=== PATIENT | female | born 1970 | race Caucasian/White ===

== ENCOUNTER 2017-10-31 07:43 | Emergency (ER) | payer SELFPAY ==
[~2017-10-31] VITALS: Ht 160 cm; Wt 70.0 kg
[~2017-10-31 07:43] MED LIST: ASAC800T PO; DIFL150T PO
[2017-10-31 07:45] VITALS: BP 134/77; PULSE 119; RESP 14; TEMP 97.6; O2SAT 100
[2017-10-31 07:57] VITALS: PULSE 111
[2017-10-31] MEDS ORDERED: MEDI220T PO (08:00)
[2017-10-31] MEDS ORDERED: IBUP200T47 PO (08:00)
[2017-10-31] MEDS ORDERED: SOMA250T PO (08:00)
[2017-10-31] MEDS ORDERED: GABA100C4 PO (08:00)
--- NOTE | 2017-10-31 08:00 | PD ---
HPI Chief Complaint: Back/ Neck Pain or Injury Time Seen by Provider: 07:59 Travel History International Travel<30 days: No Contact w/Intl Traveler<30days: No Traveled to known affect area: No History of Present Illness HPI 47-year-old female presents emergency department with ongoing and worsening right sided neck stiffness and spasm. Patient states it has been going on for over a week. She denies any specific injury. Patient has seen her neurologist, who has treated her with prednisone, Flexeril, and Soma without improvement. Patient states he has been using heat and ice without improvement. Patient states that massage seems to make it worse. She denies weakness or numbness in the upper extremities. Patient denies fever, chills, or other symptoms. She has allergies to hydromorphone. PFSH Past Medical History Blood Disorders: No Cancer: Yes (SKIN CANCER REMOVED FROM RIGHT SHOULDER) Cardiovascular Problems: No Diabetes: No Diminished Hearing: No Gastrointestinal Disorders: Yes (CHRONIC COLITIS AND ESOPHAGITIS) GERD: Yes Genitourinary: No Immune Disorder: No Implanted Vascular Access Dvce: No Musculoskeletal: No Neurologic: Yes (meningioma, chronic headaches) Psychiatric: No Respiratory: No Thyroid Disease: No Tetanus Vaccination: < 5 Years Influenza Vaccination: No ?: Not : 5 Para: 3 Miscarriage: 1 : 1 Past Surgical History Cardiac Surgery: No Cholecystectomy: Yes Ear Surgery: No Endocrine Surgery: No Genitourinary Surgery: No Gynecologic Surgery: Yes Hysterectomy: Yes Neurologic Surgery: No Oral Surgery: No Thoracic Surgery: No Other Surgery: Yes (ganglion cyst from rt wrist,sq cell CA rt shld) Social History Alcohol Use: Yes (SOCIALLY) Tobacco Use: Yes Substance Use: No Allergies-Medications (Allergen,Severity, Reaction): Coded Allergies: hydromorphone (Verified Allergy, Mild, MAKES STOMACH BURN , 10/31/17) Reported Meds & Prescriptions Reported Meds & Active Scripts Active Diflucan (Fluconazole) 150 Mg Tab 150 Mg PO ONCE Reported Adderall (Amphetamine-Dextroamphetamine) 10 Mg Tab 10 Mg PO DAILY Avoid late evening doses. Space doses at least 4 to 6 hours if more than once/day dosing. Ibuprofen 200 Mg Tab 200 Mg PO Q6H PRN Naproxen Sodium 220 Mg Tab 220 Mg PO BID PRN Gabapentin 100 Mg Cap 100 Mg PO TID Soma (Carisoprodol) 250 Mg Tab 250 Mg PO QID PRN Asacol HD (Mesalamine) 800 Mg Tab 1,600 Mg PO TID Swallow whole. Take on an empty stomach. Review of Systems Except as stated in HPI: all other systems reviewed are Neg General / Constitutional: No: Fever Eyes: No: Visual changes HENT: No: Headaches Cardiovascular: No: Chest Pain or Discomfort Respiratory: No: Shortness of Breath Gastrointestinal: No: Abdominal Pain Genitourinary: No: Dysuria Musculoskeletal: Positive: Myalgias, Limited ROM, Pain (See history of present illness) Skin: No Rash Neurologic: No: Weakness Psychiatric: No: Depression Endocrine: No: Polydipsia Hematologic/Lymphatic: No: Easy Bruising Physical Exam Narrative GENERAL: Patient appears in moderate distress SKIN: Warm and dry. Normal color. Normal turgor. No rash. HEAD: Atraumatic. Normocephalic. EYES: Pupils equal and round. No scleral icterus. No injection or drainage. ENT: No nasal bleeding or discharge. Mucous membranes pink and moist. Pharynx is clear. Airways patent. NECK: Trachea midline. No bony tenderness or step-off. Range of motion is limited secondary to soft tissue tenderness and spasm on the right paraspinous and scalene muscles. Spasm is CARDIOVASCULAR: Regular rate and rhythm. RESPIRATORY: No accessory muscle use. Clear to auscultation. Breath sounds equal bilaterally. GASTROINTESTINAL: Abdomen soft, non-tender, nondistended. Hepatic and splenic margins not palpable. MUSCULOSKELETAL: Extremities without clubbing, cyanosis, or edema. No obvious deformities. NEUROLOGICAL: Awake and alert. No obvious cranial nerve deficits. Motor grossly within normal limits. Five out of 5 muscle strength in the arms and legs. Normal speech. PSYCHIATRIC: Appropriate mood and affect; insight and judgment normal. Data Data Last Documented VS Vital Signs Date Time Temp Pulse Resp B/P (MAP) Pulse Ox O2 Delivery O2 Flow Rate FiO2 10/31/17 07:57 17 10/31/17 07:57 111 10/31/17 07:45 97.6 100 Orders Orders Ketorolac Inj (Toradol Inj) (10/31/17 08:15) Orphenadrine Inj (Norflex Inj) (10/31/17 08:15) [facility] Medical Decision Making Medical Screen Exam Complete: Yes Emergency Medical Condition: Yes Medical Record Reviewed: Yes Differential Diagnosis Neck pain. Torticollis. Muscle spasm. Narrative Course Radiographic imaging at this time is not felt warranted based on the patient's history and physical. Patient is given Toradol 60 mg IM as well as 60 mg Norflex IM. Patient is given 40 mg prednisone p.o. Patient will be continued on prednisone 20 mg twice daily 5 days. Patient continued on Norflex 100 mg twice daily. #10. Recommend patient follow-up with her neurologist for further evaluation and treatment and recommend physical therapy. I also recommend the patient evaluate her workstation as this may be contributing factor to her condition. Diagnosis Primary Impression: Torticollis, spasmodic Referrals: Neurologist Patient Instructions: General Instructions, Muscle Spasm (ED), Spasmodic Torticollis (ED) Additional Instructions: Patient is given Toradol 60 mg IM as well as 60 mg Norflex IM. Patient is given 40 mg prednisone p.o. Patient will be continued on prednisone 20 mg twice daily 5 days. Patient continued on Norflex 100 mg twice daily. #10. Recommend patient follow-up with her neurologist for further evaluation and treatment and recommend physical therapy. I also recommend the patient evaluate her workstation as this may be contributing factor to her condition. Med/Other Pt SpecificInfo: Prescription(s) given Disposition: 01 DISCHARGE HOME Condition: Stable Todd Lovelace Oct 31, 2017 08:00
[2017-10-31] MEDS ORDERED: ADDE10 PO (08:01)
[2017-10-31] MEDS ORDERED: KETOROLAC TROMETHAMINE 60 MG/2 ML (IM) VIAL IM ONE (08:15)
[2017-10-31] MEDS ORDERED: predniSONE 20 MG TAB PO ONE (08:15)
[2017-10-31] MEDS ORDERED: ORPHENADRINE INJ 60 MG/2 ML AMP IM ONE (08:15)
[2017-10-31] MEDS ORDERED: ORPH100T2 PO (08:21)
[2017-10-31] MEDS ORDERED: PRED20 PO (08:21)
== END 2017-10-31 08:46 | disposition home or self-care (01) ==
LOC: NEPD 07:43
DX: G24.3 Spasmodic torticollis (principal); Z85.828 Personal history of other malignant neoplasm of skin; Z72.0 Tobacco use; Z88.5 Allergy status to narcotic agent; Z79.899 Other long term (current) drug therapy
CPT/HCPCS: 96372; 99283; J1885; J2360; J7512

== ENCOUNTER 2018-01-30 12:48 | Emergency (ER) | payer MEDICAID ==
[~2018-01-30] VITALS: Ht 157.5 cm; Wt 72.5 kg
[~2018-01-30 12:48] MED LIST changes: +ADDE10 PO; +GABA100C4 PO; +IBUP200T47 PO; +MEDI220T PO; +ORPH100T2 PO; +PRED20 PO; +SOMA250T PO
[2018-01-30 13:05] VITALS: BP 162/90; PULSE 125; RESP 22; TEMP 98.7; O2SAT 100
[2018-01-30 14:05] VITALS: PULSE 108; RESP 24; O2SAT 98
[2018-01-30] MEDS ORDERED: KETOROLAC TROMETHAMINE 60 MG/2 ML (IM) VIAL IM ONE (14:30)
[2018-01-30] MEDS ORDERED: ORPHENADRINE INJ 60 MG/2 ML AMP IM ONE (14:30)
--- NOTE | 2018-01-30 14:46 | PD ---
HPI Chief Complaint: Injury Time Seen by Provider: 14:16 Travel History International Travel<30 days: No Contact w/Intl Traveler<30days: No Traveled to known affect area: No History of Present Illness HPI 47-year-old female presents to the emergency department with complaint of right arm pain with numbness and tingling 1 week. Denies injury. Says she thinks her pain starts in the neck and radiates down her right arm. Denies fever, vomiting. Denies history of DVT/PE. Denies anticoagulant therapy. Denies arm edema. Rates pain 10/10. Describes it as throbbing. Worse with movement, especially with rotation of her neck. No known relieving factors. Has tried NSAIDs, Z-Matthew, heat, Medrol Dosepak without relief of symptoms. Called and spoke with her neurologist who told her to come to the ER. She sees a neurologist for a tumor in her brain that he follows. No primary care provider. Neurologist is Dr. Wynn. No known allergies. History of ADD and takes Adderall. Denies other significant past medical history. Has no other medical complaints. No other modifying factors or associated signs and symptoms. PFSH Past Medical History Blood Disorders: No Cancer: Yes (SKIN CANCER REMOVED FROM RIGHT SHOULDER) Cardiovascular Problems: No Diabetes: No Diminished Hearing: No Gastrointestinal Disorders: Yes (CHRONIC COLITIS AND ESOPHAGITIS) GERD: Yes Genitourinary: No Immune Disorder: No Implanted Vascular Access Dvce: No Musculoskeletal: No Neurologic: Yes (meningioma, chronic headaches) Psychiatric: No Respiratory: No Thyroid Disease: No : 5 Para: 3 Miscarriage: 1 : 1 Past Surgical History Cardiac Surgery: No Cholecystectomy: Yes Ear Surgery: No Endocrine Surgery: No Genitourinary Surgery: No Gynecologic Surgery: Yes Hysterectomy: Yes Neurologic Surgery: No Oral Surgery: No Thoracic Surgery: No Other Surgery: Yes (ganglion cyst from rt wrist,sq cell CA rt shld) Social History Alcohol Use: Yes (SOCIALLY) Tobacco Use: Yes Substance Use: No Allergies-Medications (Allergen,Severity, Reaction): Coded Allergies: hydromorphone (Verified Allergy, Mild, MAKES STOMACH BURN , 01/30/18) Reported Meds & Prescriptions Reported Meds & Active Scripts Active Orphenadrine CR (Orphenadrine Citrate) 100 Mg Tab 100 Mg PO Q12HR 5 Days Prednisone 20 Mg Tab 20 Mg PO BID 5 Days Diflucan (Fluconazole) 150 Mg Tab 150 Mg PO ONCE Reported Adderall (Amphetamine-Dextroamphetamine) 10 Mg Tab 10 Mg PO DAILY Avoid late evening doses. Space doses at least 4 to 6 hours if more than once/day dosing. Ibuprofen 200 Mg Tab 200 Mg PO Q6H PRN Naproxen Sodium 220 Mg Tab 220 Mg PO BID PRN Gabapentin 100 Mg Cap 100 Mg PO TID Soma (Carisoprodol) 250 Mg Tab 250 Mg PO QID PRN Asacol HD (Mesalamine) 800 Mg Tab 1,600 Mg PO TID Swallow whole. Take on an empty stomach. Review of Systems Except as stated in HPI: all other systems reviewed are Neg Physical Exam Narrative GENERAL: Well-nourished, well-developed patient, in no acute distress SKIN: Warm and dry. HEAD: Atraumatic. Normocephalic. EYES: Pupils equal and round. No scleral icterus. No injection or drainage. ENT: Mucosa pink and moist. Airway patent. NECK: Supple. Trachea midline. Moving freely. No midline tenderness on palpation of the cervical spine. No reproducible tenderness on palpation to the musculature of the right trapezius muscle of the neck and scapular region. CARDIOVASCULAR: Regular rate. RESPIRATORY: No accessory muscle use. GASTROINTESTINAL: Rounded. MUSCULOSKELETAL: Right shoulder with full range of motion and greater than 45 abduction; shoulder without erythema, edema, ecchymosis; without tenderness on palpation; joint stable. Right hand nut culler strength is decreased when compared to the left; sensory intact; 2+ radial pulse. Right upper extremity is supple and non-tense and without erythema or edema. No obvious deformities. No clubbing. No cyanosis. No edema. NEUROLOGICAL: Awake and alert. Oriented 3. No obvious cranial nerve deficits. Motor grossly within normal limits. Normal speech. PSYCHIATRIC: Appropriate mood and affect; insight and judgment normal. Data Data Last Documented VS Vital Signs Date Time Temp Pulse Resp B/P (MAP) Pulse Ox O2 Delivery O2 Flow Rate FiO2 01/30/18 14:05 108 24 98 Room Air 01/30/18 13:05 98.7 162/90 (114) Orders Orders Us Arm Venous Doppler (01/30/18 ) Ketorolac Inj (Toradol Inj) (01/30/18 14:30) Orphenadrine Inj (Norflex Inj) (01/30/18 14:30) [facility] Medical Decision Making Medical Screen Exam Complete: Yes Emergency Medical Condition: Yes Medical Record Reviewed: Yes Differential Diagnosis Cervical radiculopathy, arm DVT, arm pain Narrative Course 47-year-old female physical exam and HPI consistent with cervical radiculopathy. I spoke with Dr. Ram, my attending physician, and he agrees with ultrasound of the right upper extremity to rule out DVT. Toradol, Norflex, right arm venous Doppler ultrasound ordered. 1559: Right arm venous Doppler ultrasound negative for DVT. Discussed ultrasound findings with the patient. Ibuprofen, Robaxin, Medrol Dosepak prescribed for home. Instructed patient to follow-up with neurologist. Instructed patient to follow up with primary care provider. Patient verbalizes understanding and agreement with treatment plan. Patient is medically cleared and stable for discharge. Discussed reasons to return to the emergency department. Patient agrees with treatment plan. The patients vital signs are stable and the patient is stable for outpatient follow-up and treatment. Patient discharged home, stable and in no acute distress. Diagnosis Primary Impression: Right arm pain Additional Impression: Paresthesia of right arm Referrals: [facility] Neurologist Primary Care Physician Patient Instructions: Arm Pain (ED), Cervical Radiculopathy (ED), General Instructions Additional Instructions: Tylenol or ibuprofen as directed and as needed for pain Robaxin as prescribed and as needed for muscle spasms Heating pad and/or ice to affected area to reduce pain Avoid aggravating activities; increase activity as tolerated Follow-up with primary care provider Follow-up with neurologist Return to emergency department immediately with worsening of symptoms Med/Other Pt SpecificInfo: Prescription(s) given Scripts Ibuprofen (Ibuprofen) 800 Mg Tab 800 MG PO Q6HR Y for PAIN, #40 TAB 0 Refills Prov: Brianda Velasquez 01/30/18 Methocarbamol (Robaxin) 500 Mg Tab 500 MG PO QID Y for MUSCLE SPASM, #40 TAB 0 Refills Prov: Brianda Velasquez 01/30/18 Methylprednisolone Dosepak (Medrol Dosepak) 4 Mg Dspk 4 MG PO DIRECTED, #1 DSPK 0 Refills Per Pharmacist direction Prov: Brianda Velasquez 01/30/18 Disposition: 01 DISCHARGE HOME Condition: Stable Brianda Velasquez January 30, 2018 14:46
--- NOTE | 2018-01-30 15:54 | RADRPT ---
EXAM DATE/TIME: 01/30/2018 14:58 [facility] COMPARISON: No previous studies available for comparison. INDICATIONS : Right arm swelling. MEDICAL HISTORY : Gastroesophageal reflux disease. Carcinoma, squamous cell. Meningioma. Chronic headaches. Chronic c olitis and esophagitis. SURGICAL HISTORY : Cholecystectomy. Hysterectomy. Partial colectomy. Skin cancer removed from right shoulder. Ganglion cyst from right wrist removed. ENCOUNTER: Initial ACUITY: 2 weeks PAIN SCORE: 4/10 LOCATION: Right arm. FINDINGS: There is spontaneous flow documented in the brachial, basilic, cephalic, axillary, and subclavian vei ns. The vessels are compressible and augmentation response is documented. No filling defects are se en. The flow is phasic with respiration. Direction of flow in the jugular vein is caudal. CONCLUSION: Negative for deep venous thrombosis. Norman Montiel MD FACR on January 30, 2018 at 15:52 Board Certified Radiologist. This report was verified electronically.
[2018-01-30] MEDS ORDERED: IBUP1TAB7 PO (16:02)
[2018-01-30] MEDS ORDERED: ROBA500T PO (16:02)
[2018-01-30] MEDS ORDERED: MEDR4PAK PO (16:02)
== END 2018-01-30 16:19 | disposition home or self-care (01) ==
LOC: NEPD 12:48
DX: M79.601 Pain in right arm (principal); R20.2 Paresthesia of skin
CPT/HCPCS: 93971; 96372; 99284; J1885; J2360